=== PATIENT | male | born 1955 | race Caucasian/White ===

== ENCOUNTER 2016-08-21 16:51 | Emergency (ER) | payer OTHER ==
[~2016-08-21] VITALS: Ht 172.7 cm; Wt 68.0 kg
[2016-08-21] MEDS ORDERED: HYDROCODONE/APAP 5/325MG 1 EACH TABLET ONE (17:10)
[2016-08-21] MEDS ORDERED: HYDROCODONE/APAP 5/325MG 1 EACH TABLET PO ONE (17:30)
[2016-08-21] MEDS ORDERED: MORPHINE SULFATE INJ 4 MG/ML DISP.SYRIN ONE (17:58)
[2016-08-21] MEDS ORDERED: MORPHINE SULFATE INJ 2 MG/ML DISP.SYRIN IM ONE (18:00)
[2016-08-21] MEDS ORDERED: HYDROMORPHONE 1 MG/1 ML DISP.SYRIN ONE (18:44)
[2016-08-21] MEDS ORDERED: HYDROMORPHONE 1 MG/1 ML DISP.SYRIN IM ONE (19:00)
[2016-08-21] MEDS ORDERED: IV SET PRIMARY 1 EA INFUS.SET MC ONE (19:06)
[2016-08-21] MEDS ORDERED: PROPOFOL 0 ML IV ONE (19:06)
[2016-08-21] MEDS ORDERED: IV NS 0.9% 1,000 ML ONE (19:06)
[2016-08-21] MEDS ORDERED: PROPOFOL 20 ML IV ONE (19:15)
[2016-08-21] MEDS ORDERED: IV NS 0.9% 1,000 ML BAG IV ONE (19:30)
[2016-08-21] MEDS ORDERED: PROPOFOL 200 MG/20 ML VIAL IV ONE (19:30)
[2016-08-21 19:49] VITALS: BP 147/87
== END 2016-08-21 19:52 | disposition home or self-care (01) ==
LOC: ER 16:54
DX: S53.025A Posterior dislocation of left radial head, initial encounter (principal); S52.002A Unspecified fracture of upper end of left ulna, initial encounter for closed fracture; Z88.2 Allergy status to sulfonamides; X58.XXXA Exposure to other specified factors, initial encounter; Y93.89 Activity, other specified; Y92.89 Other specified places as the place of occurrence of the external cause; Y99.8 Other external cause status
CPT/HCPCS: 24620; 73070; 73080 ×2; 96360; 96372 ×2; 99152; 99285; A4606; J1170; J2270; J2704; J7030; Z7610